=== PATIENT | male | born 1945 | race Caucasian/White ===

== ENCOUNTER 2016-08-23 14:18 | Inpatient (IN) | payer OTHER ==
--- NOTE | ~2016-08-23 | CN ---
Consultation Report [facility] [address] [place]. [address] NAME: GURDEEP LOWRY : 45 STATUS : ADM IN PAT#: [id number] AGE: 71 ADM/REG DATE : 08/23/16 MR#: [id number] REPORT SERV DATE: 09/01/16 DICTATED BY: ADELAIDE MAX DATE: 09/01/16 REPORT STATUS : Draft TRANSCRIBED BY: MODL DATE: 09/01/16 PULMONARY CRITICAL CARE MEDICINE, FAMILY CONFERENCE DOCUMENTATION DATE OF CONSULTATION: A family meeting was conducted with Mrs. Lowry on 08/31/2016. Participants included myself representing the Pulmonary Critical Care Medicine Service, Dr. Aiden Calabrese representing Oncology, and Delfina, nurse practitioner, from Palliative Care Service as well as the patient's bedside nurse, Ramón. Family representatives included patient's Mrs. Lowry as well as another lady who Mrs. Lowry requested to be present for emotional support. After introducing all members of the care team, we reviewed Mr. Lowry's continued dyspnea which had been persistent and worsening since he was extubated the previous day. Of note, nursing staff overnight did report that he had what they felt might have been an aspiration event while using the BiPAP, and he was transitioned to Vapotherm. He began progressively tachypneic and this was relayed to his family. We moved towards the concept of reintubation and Dr. 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 This information was relayed to Mrs. Lowry who was tearful, but did verbalize her understanding that Mr. Lowry is approaching the end of his life. She verbalized that after he was extubated last night and was wearing the Vapotherm, he was actually able to have a conversation with her, in which he told her that he was at peace with the situation and was ready to meet god. She verbalized that this had given her reassurance that he was ready to and although it was hard to let him go that she was also making peace with his continued decline, and was preparing to say goodbye. We did specifically addressed the fact that Dr. Calabrese and I were in agreement that ACLS would be inappropriate in the setting of advanced stage incurable malignancy with poor quality of life and this debilitated gentleman and Mrs. Lowry was in agreement with DNR. After all questions were answered, meeting was concluded. Mrs. Lowry proceeded to spend time with her , the transportation technician visit him later that day, and reported that she was more accepting than she had been previously been with regard to Mr. Lowry's continued decline. He was transitioned to comfort focus care to a monitored bed under Dr. Calabrese's service with a referral to hospice to assist with care as he approached the end of his life. He was moved to [facility] on the morning of 09/01/2016 on palliative Vapotherm, Dilaudid, Ativan with p.r.n. albuterol, and Zofran as well as scopolamine patch for control of secretions. Pulmonary critical care team is available on as needed basis. ZBIGNIEW/BRAIN Adelaide Max MD / [id number] CC: Consultation Report [address] [address] NAME: GURDEEP LOWRY : 45 STATUS : ADM IN [facility]#: [id number] AGE: 71 ADM/REG DATE : 08/23/16 MR#: [id number] REPORT SERV DATE: 09/01/16 DICTATED BY: ADELAIDE MAX DATE: 09/01/16 REPORT STATUS : Draft TRANSCRIBED BY: BRAIN DATE: 09/01/16 Nick Spring M.D.
--- NOTE | ~2016-08-23 | CN ---
Consultation Report [facility] [address] [place]. [address] NAME: GURDEEP LOWRY : 45 STATUS : ADM IN PAT#: [id number] AGE: 71 ADM/REG DATE : 08/23/16 MR#: [id number] REPORT SERV DATE: 08/28/16 DICTATED BY: IRENA WHALEN DATE: 08/28/16 REPORT STATUS : Draft TRANSCRIBED BY: MODL DATE: 08/28/16 DATE OF CONSULTATION: Consultation and Procedural Report This is a palliative care team meeting with the patient's and sister. Palliative Care team, including the MD, RN, GRIPPER ATTACHER, and inside sales person had an opportunity to meet with both the sister of the patient and his . A number of issues of concern had been raised regarding the patient's 's ability to understand, articulate, and describe the patient's medical condition. He is status post cardiac arrest from his oncologist's office, and yet there had been second and splitter hand reports that the family is denying the cancer is a problem. 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 The team was introduced and discussion ensued. We touched on the patient's very strong will to live. The fact that he was initially diagnosed some time ago as having a stroke, but in fact he had nerve injuries in his neck. He then recovered from all of that. His health is described by the as excellent, although he does wear oxygen and CPAP at night for obstructive sleep apnea. He also has a long history of smoking which he stopped five years ago. He has had lung surgery in the past as described in the H and P, which she also described. Unfortunately, what pervades the entire discussion is an incredible level of distrust and misinterpretation regarding healthcare interactions with both her, the patient, and her family members. She described in length and with great detail including dates the demise of her 32-year-old son in approximately 2002 at [place] from "unknown causes." She has tremendous amounts of doubt, she reads aggressively whatever and tries to seek understanding of medical information with less than a complete picture of the overall situation. Several attempts to redirect her back to her 's condition were complicated by descriptions of sister and other family members who have been either mistreated, mislead, or inappropriately managed by the health care field. I also received a detailed description of how pathology slides may not be necessarily accurately reviewed. The team members each contributed to her perspective on the patient's care and tried to get her back on focus. We agreed that while he does have an oncological problem that we are not going to let that be the priority issue. Our major problem now is the fact that he is on the ventilator, he also has an MRI scan which is somewhat suspicious of either an ischemic or an oncologic problem, and he is currently on the ventilator and he has not been weaning Consultation Report [facility] [address] [place]. [address] NAME: GURDEEP LOWRY : 45 STATUS : ADM IN [facility]#: [id number] AGE: 71 ADM/REG DATE : 08/23/16 MR#: [id number] REPORT SERV DATE: 08/28/16 DICTATED BY: IRENA WHALEN DATE: 08/28/16 REPORT STATUS : Draft TRANSCRIBED BY: BRAIN DATE: 08/28/16 entirely well. The 's perspective is that he has been getting better every day that he recognizes her, follows commands, and it is her expectation and hope that she will be able to take him home. We explained that in fact, given his underlying lung issues, his cancer stress, the use of chemotherapy in the recent past, etc., that the trauma of resuscitation, etc., may take a toll on him which will make it very hard for him to assume his previous life functional level and that we were going to have to definitely have a very detailed discussion going forward about how to handle the situation should he not be able to come off the respirator. Mrs. Lowry continues to take individual and tries to make conclusions from them which may or may not be accurate, and I have elected to only selectively engage her on this level, instead try and build a working relationship where we can actually meaningful changes going down the road. We did not at this time seek to clarify or discuss her understanding of a do not resuscitate order as it is both clinically and medically relevant to his current condition, and I did not wish to complicate the situation today. We have agreed to meet on a regular basis, our GRIPPER ATTACHER will be also providing support. We were going to basically stay involved with the corporate driver and sometime early next week if he is not actively weaning off the ventilator, a discussion about possibly weaning to either BiPAP or simply this oxygen depending upon his obstructive apnea questions may be an option, but I would certainly not support a tracheostomy in this gentleman. His current oncological situation and the morphology of his cancer certainly would not make this a reasonable choice. Today's discussion was approximately 95 minutes in duration. Questions were answered to the best of our ability. A care plan has been laid out. JULIO/BRAIN Irena Whlaen M.D. / [id number] CC: Nick Spring M.D. UNKNOWN
--- NOTE | ~2016-08-23 | CN ---
Consultation Report [facility] [address] [place]. [address] NAME: GURDEEP MARAVILLA : 45 STATUS : ADM IN [facility]#: [id number] AGE: 71 ADM/REG DATE : 08/23/16 MR#: [id number] REPORT SERV DATE: 08/25/16 DICTATED BY: OSCAR GARCIA DATE: 08/25/16 REPORT STATUS : Draft TRANSCRIBED BY: MODL DATE: 08/25/16 NEUROLOGICAL CONSULTATION DATE OF CONSULTATION: 08/25/2016 REASON FOR CONSULTATION: Encephalopathy, status post cardiopulmonary arrest, status post hypothermia protocol. HISTORY OF PRESENT ILLNESS: This is a 71-year-old male with known recently diagnosed history of metastatic lung CA, small cell, who suffered a cardiac arrest at his oncologist's office yesterday, and the patient was found to be in ventricular fibrillation and CPR was started while the patient was in the physician's office. On admission to the emergency room, the patient was found to be in ventricular fibrillation. The ACLS protocol was followed. The patient required six to seven shocks along with the CPR and eventually had return of spontaneous circulation. Hypothermia protocol was initiated, and the patient currently is after the rewarming stage. PAST MEDICAL HISTORY: Significant for history of COPD; emphysema; history of sleep apnea; coronary artery disease; hypertension; atrial fibrillation; hyperlipidemia; history of renal disease; history of aortic aneurysm, which has been followed by his vascular surgeon, Dr. Landeros, the patient is status post aortic aneurysm repair. The patient's lung cancer with metastasis to the liver was diagnosed in June of this year, the findings were noted on the emergency room CT scan, which was obtained with the patient presenting with shortness of breath. The patient has history of chronic kidney disease, history of hyperlipidemia, hypertension, and a questionable diabetes. ALLERGIES: TO MORPHINE. HOME MEDICATIONS: Included Coreg 3.125 mg p.o. b.i.d., Hytrin 4 mg b.i.d., Klonopin 1 mg once a day, hydralazine 100 mg three times a day, Norvasc 5 mg p.o. daily, albuterol p.r.n., oxygen, Demadex 10 mg p.o. daily, Dilaudid 2 mg as needed, and Robaxin. FAMILY HISTORY: Significant for history of polycystic kidney disease, of which the patient's son and brother . The patient does not have any history of polycystic kidney disease. SOCIAL HISTORY: The patient stopped smoking in 2010. When the patient's was asked whether she was exposed to secondhand smoke, she stated that she smokes "outside." The patient is retired. PHYSICAL EXAMINATION: VITAL SIGNS: Blood pressure 106/60, pulse was 63, respirations 14. GENERAL: The patient is orally intubated, currently on Precedex for restlessness. HEAD AND NECK: Showed him to be normocephalic. There was no evidence of trauma. The patient is orally intubated. Eye exam, sclerae were not icteric. Conjunctivae were pink. Consultation Report [address] [place]. [address] NAME: GURDEEP MARAVILLA : 45 STATUS : ADM IN [facility]#: [id number] AGE: 71 ADM/REG DATE : 08/23/16 MR#: [id number] REPORT SERV DATE: 08/25/16 DICTATED BY: OSCAR GARCIA DATE: 08/25/16 REPORT STATUS : Draft TRANSCRIBED BY: BRAIN DATE: 08/25/16 ENT exam, the patient appears to have some missing teeth from the frontal region. Neck was supple. There was no Kernig or Brudzinski. The patient was off sedation and moved all four extremities. Off sedation, the patient was breathing over the ventilator at 25 or 30 respirations a minute. ABDOMEN: Slightly obese. The patient is in a Carlos Hugger. EXTREMITIES: Showed red discoloration of distal leg and swelling up to the knees, which was 2 to 3+ pitting. No ecchymosis noted. NEUROLOGICAL: The patient was restless, appeared to open his eyes to command, however, did not follow commands to move his arms or legs. The patient had to be restrained with mittens over his hands. No cyanosis noted. Neurological examination otherwise showed the patient to be obtunded, but responding to voice to open his eyes. The patient did not follow commands. He is orally intubated. Speech could not be tested. Cranial nerve examination 2 through 12, visual menon were difficult to test since the patient was not following commands. Pupils were 3 mm and responded to light. The gaze was midline. No dysconjugate gaze was noted. The patient's gaze appeared to cross midline. Corneal reflexes were present, and the patient has gag reflex also. No facial asymmetry was detected. Motor exam, the patient moved all four extremities, but not to command. His leg movements were, however, not as robust as arm movements. Deep tendon reflexes were difficult to test, appeared to be symmetrical. Babinski signs were not elicitable, and cerebellar exam could not be tested. Gait obviously could not be tested. LABORATORY STUDIES: Show WBC count of 21,800; hemoglobin 8.9; hematocrit 26.5; MCV 91; platelet count 121,000; segs 84, bands 5, neutrophils 19.40. Comprehensive metabolic panel: Sodium 136, potassium 4.8, chloride 101, carbon dioxide 29, BUN 21, creatinine 1.36, GFR 52, glucose 131, calcium 8.3, magnesium 2.6, phosphorus 5.1, total protein 5.6, albumin 2.5, alkaline phosphatase 195, AST 75, ALT 39. CT scan of the head reviewed by me showed evidence of small areas of ischemic changes, which appear to be old periventricular; no acute hemorrhagic changes or midline shift noted; slight effacement of the ojeda and white matter junction noted, however, no true cerebral edema present. The patient's EEG was reviewed while was being run at the patient's bedside and showed continuous slowing of cerebral activity with moderate to high voltage theta range activity. No paroxysmal or epileptiform activity was seen. No significant asymmetry of cerebral activity was present. The patient's EEG does not show signs of cerebral ; however, diffuse slowing is suggestive of possible encephalopathic process and could not rule out some cerebral anoxia. The patient is status post hypothermia protocol recently, rewarmed body temperature today was back to normal. IMPRESSION: Status post cardiac arrest, witnessed. The patient had prolonged ACLS protocol and required seven to eight shocks to return to spontaneous circulation. The patient's EEG is compatible with encephalopathy, however, shows moderate amount of cerebral activity present. History of metastatic lung cancer with metastasis to the liver, diagnosed in June of this year. History of renal insufficiency, hypertension, history of atrial fibrillation, coronary artery disease, remote history of CVA in 2010. The patient has an increased risk of CVA. Would recommend to maintain the patient's blood pressure above 130-140 systolic range to maintain cerebral perfusion. Avoid precipitous drops of blood pressure if Consultation Report [facility] [address] [place]. [address] NAME: GURDEEP MARAVILLA : 45 STATUS : ADM IN PAT#: [id number] AGE: 71 ADM/REG DATE : 08/23/16 MR#: [id number] REPORT SERV DATE: 08/25/16 DICTATED BY: OSCAR GARCIA DATE: 08/25/16 REPORT STATUS : Draft TRANSCRIBED BY: BRAIN DATE: 08/25/16 possible. Do not treat hypotension unless the blood pressure reaches above 180 systolic if okay with Cardiology. Repeat EEG in 24 hours. If needed, the patient will be re-evaluated by me. Prognosis is guarded. Thank you for allowing us to participate in this patient's care. This was a critical care visit, total time 50 minutes. The patient has increased risk of mortality, increased risk of neurological deterioration, multiple comorbidities. AGUSTIN/BRAIN Oscar Garcia MD / [id number] CC: Nick Spring M.D.
--- NOTE | ~2016-08-23 | DS ---
Discharge Summary [facility] [address] [place]. [address] NAME: GURDEEP LOWRY : 45 STATUS : DIS IN PAT#: [id number] AGE: 71 ADM/REG DATE : 08/23/16 MR#: [id number] REPORT SERV DATE: 09/22/16 DICTATED BY: GUANAKITO TRIVEDI DATE: 09/21/16 REPORT STATUS : Draft TRANSCRIBED BY: MODL DATE: 09/21/16 ADMISSION DATE: 08/23/2016 DISCHARGE DATE: 09/01/2016 SUMMARY DATE OF : 09/01/2016 DISCHARGE DIAGNOSES: 1. Acute cardiopulmonary arrest, for admission. 2. Metastatic small cell lung cancer. 3. Anoxic encephalopathy. HOSPITAL COURSE: Mr. Lowry is a gentleman who had a witnessed [id number] arrest. He was defibrillated multiple times and had CPR performed. He was transferred to the emergency department. He was admitted to the hospital and had hypothermia protocol. He was able to be extubated, but then had worsening dyspnea. Decision was made for comfort care alone after discussion with the adobe developer and oncologist, Dr. Trivedi, covering for Dr. Robles. He was transferred from the ICU to the floor for comfort care, and on 09/01/2016, with family at bedside . DICTATED BY: Guanakito Trivedi M.D. EA/BRAIN Guanakito Trivedi M.D. / [id number] CC: Guanakito Trivedi M.D.
--- NOTE | ~2016-08-23 | CN ---
Consultation Report [facility] [address] [facility] [address] [place]. [address] NAME: GURDEEP MARAVILLA : 45 STATUS : ADM IN [facility]#: [id number] AGE: 71 ADM/REG DATE : 08/23/16 MR#: [id number] REPORT SERV DATE: 08/23/16 DICTATED BY: JOE SPRING DATE: 08/23/16 REPORT STATUS : Draft TRANSCRIBED BY: MODL DATE: 08/23/16 CONSULTATION DATE OF CONSULTATION: 08/23/2016 TIME: 1530 hours. LOCATION: Seen in room 2 in the ER. HISTORY OF PRESENT ILLNESS: He is a 71-year-old white male undergoing treatment for the metastatic small-cell lung cancer. He was seen in his oncologist office today and had a ventricular fibrillation and witnessed cardiac arrest. Had six to seven shocks along with CPR, had return of spontaneous circulation, brought to the ER here, and hypothermia protocol was begun as the patient was not deemed to be waking up. PAST MEDICAL HISTORY: Quite significant for COPD and emphysema; he had obstructive sleep apnea, he is on home CPAP; history of chronic hypoxemic respiratory failure; history of coronary artery disease, status post cardiac [place] in the past and stents; has peripheral vascular disease; endovascular repair of abdominal aortic aneurysm by Dr. Landeros; chronic kidney disease; history of osteoarthritis; degenerative disk disease; back pain; and history of prior CVA in 2010 with no significant residual. PAST SURGICAL HISTORY: Significant for cardiac catheterization, cardiac stents, history of abdominal aortic aneurysm repair on 01/25/2012, and melanoma removal. ALLERGIES: NO KNOWN ALLERGIES. MEDICATION LIST: Please see. SOCIAL HISTORY: The patient is , lives with his family. He used to smoke, quit in 2010, had 6-pack-year smoking history. PHYSICAL EXAMINATION: VITAL SIGNS: Blood pressure 144/40, temperature 99.4, pulse 122, respirations 14. GENERAL: The patient is orally intubated. HEENT: Head is normocephalic. Sclerae and conjunctivae are clear. Roving eye movements. NECK: Supple. Good upstroke. No bruits. CHEST: Decreased breath sounds. No wheezing, no rhonchi. CARDIAC: S1 and S2, irregular. ABDOMEN: Obese, nontender. No masses or organomegaly. EXTREMITIES: Marked edema with bilateral cellulitis of lower extremities. NEUROLOGIC: The patient does respond to some painful stimuli, has nonpurposeful movements, does not respond to command. Consultation Report [facility] [id number] [facility] [place]. [address] NAME: GURDEEP MARAVILLA : 45 STATUS : ADM IN PAT#: [id number] AGE: 71 ADM/REG DATE : 08/23/16 MR#: [id number] REPORT SERV DATE: 08/23/16 DICTATED BY: JOE SPRING DATE: 08/23/16 REPORT STATUS : Draft TRANSCRIBED BY: BRAIN DATE: 08/23/16 LABORATORY DATA: Shows the following: A biopsy that showed small cell cancer. Now atrial fibrillation with rapid ventricular response. His BNP was 178. His sodium was 134, potassium 4.1, chloride 96, CO2 of 29, BUN 24, creatinine 2.01, glucose 215, calcium 8.4, total protein 5.9, albumin 2.8, alkaline phosphatase 242, ALT 33, AST 50. Troponin 0.04. CBC shows H and H of 9.3 and 28.1, white count 35,900, platelet count 112,000. 70 polys, 9 bands, 2 metamyelocytes. INR 1.2. Lactate 3.6. Arterial blood gas shows a pH of 7.32, pCO2 of 40, PO2 of 340 on CMV. Gram stain shows occasional wbc's, gram-positive cocci. KUB shows NG tube in the stomach. Chest x-ray shows endotracheal tube in place, chronic interstitial fibrosis, minimal scarring atelectasis at the lung bases. No significant trace. No pneumothorax or pleural effusion. IMPRESSION: 1. Status post cardiac arrest with atrial fibrillation. He did receive epinephrine during the arrest, which can account for his elevated white count. 2. Metastatic small-cell cancer. 3. Probable anoxic encephalopathy. 4. Cellulitis in lower extremities. 5. Chronic kidney disease. 6. Probable diabetes. PLAN: We will continue with hypothermia protocol. I have discussed this with his , and she has agreed to make him a do not resuscitate, but we will continue treatment for now. There will be a PICC line placed. ROBERTO/BRAIN Joe Spring M.D. / [id number] CC: Joe Spring M.D.
--- NOTE | ~2016-08-23 | EEG ---
Electroencephalogram [facility] [address] [place]. [address] NAME: GURDEEP MARAVILLA : 45 STATUS : ADM IN PAT#: [id number] AGE: 71 ADM/REG DATE : 08/23/16 MR#: [id number] REPORT SERV DATE: 08/25/16 DICTATED BY: OSCAR GARCIA DATE: 08/25/16 REPORT STATUS : Draft TRANSCRIBED BY: MODL DATE: 08/25/16 ELECTROENCEPHALOGRAPHY REPORT. REQUESTING PHYSICIAN: Dr. Nick Spring. INTERPRETING PHYSICIAN: Oscar Garcia M.D., Neurology. Location of the patient's CCU bed 8. AGE: 71. REASON FOR EEG: Status post cardiac arrest. The patient completed hypothermia protocol including rewarming stages. Sedation-Diprivan was discontinued prior to the EEG. 23 surface electrodes, 10-20 international placement was used. The patient was noted to be restless, not following commands. The patient opened his eyes to voice. Did not fixate his gaze on examination. The background activity consisted of dappomow-ce-qsir voltage, very poorly organized delta and theta range activity ranging between 3 to 6 cycles per second scattered throughout, increase of biphasic and triphasic waveforms was seen, most prominently seen in the anterior and central head regions. Photic stimulation was performed. Slight increase of frequency of the background activity was observed during the time of the photic stimulation. No paroxysmal or epileptiform activity was seen during this study. The EEG remained severely abnormal. The patient's health science writer showed sinus rhythm, rate of approximately 78 beats per minute. The patient did not follow commands. IMPRESSION: ABNORMAL EEG CHARACTERIZED BY PRESENCE OF SLOWING AND DISORGANIZATION OF CEREBRAL ACTIVITY. THE CHANGES APPEAR TO BE BILATERALLY SYNCHRONOUS AND DIFFUSE. THE ABOVE DESCRIBED PATTERN IS COMPATIBLE WITH ENCEPHALOPATHY. SUPERIMPOSED HYPOXIC ENCEPHALOPATHY COULD NOT BE RULED OUT. REPEAT EEG IS RECOMMENDED WHEN CLINICALLY INDICATED. TOXIC METABOLIC CAUSES AND HYPOXIA CAN PRODUCE SIMILARLY DESCRIBED PATTERN. CLINICAL CORRELATION IS RECOMMENDED. AGUSTIN/BRAIN Oscar Garcia MD / [id number] CC: Nick Spring M.D.
--- NOTE | ~2016-08-23 | CN ---
Consultation Report [facility] [address] [place]. [address] NAME: GURDEEP MARAVILLA : 45 STATUS : ADM IN PAT#: [id number] AGE: 71 ADM/REG DATE : 08/23/16 MR#: [id number] REPORT SERV DATE: 08/23/16 DICTATED BY: MARQUISE MURO DATE: 08/23/16 REPORT STATUS : Draft TRANSCRIBED BY: MODL DATE: 08/23/16 CARDIOLOGY CONSULT DATE OF CONSULTATION: HISTORY OF PRESENT ILLNESS: This is a 71-year-old white obese gentleman with what looks like advanced metastatic cancer from lungs to the liver who was earlier today resuscitated while at Outpatient Oncology Department at [facility]. He was feeling dizzy and nauseated according his earlier today, got weak, and while sitting, he passed out. He was found to have VFib arrest, and subsequently, he was pulseless. He required according to nurse several shocks and epinephrine. He was intubated on the scene and he is now in the emergency room. He was in the process to be cool down per cooling protocol. I had the opportunity to talk to Dr. Mendes. There is some confusion among the family members about the current situation. I was able to briefly review the discharge summary from [facility] dated 06/22/2016 to 06/26/2016. 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 He reportedly had two cycles of chemotherapy. He is on chronic oxygen at home in the setting of his underlying COPD. He also has some severe peripheral artery disease. He had AAA repair with remote history of coronary arteriogram in 2011 at the [facility] with chronically occluded left circumflex with some collateralization. He also has underlying kidney disease, but preserved systolic function. He has been stable from cardiac standpoint. His main problem recently has been cellulitis on both lower extremities, low-grade fever, and general weakness. This is according to his . The patient is now currently intubated. He has been reportedly full code. Further history unobtainable. PAST MEDICAL HISTORY: 1. Left lung mass with likely lung cancer with metastases to the liver. 2. Severe COPD with emphysema, on chronic oxygen at home. 3. Obstructive sleep apnea. 4. Mediastinal mass, apparently not accessible for biopsy or flexible bronchoscopy. 5. Coronary artery disease with remote history of SC and cardiac stents, currently stable. 6. Now status post VFib and V tach arrest. 7. Hypertension. 8. Peripheral artery disease and remote history of AAA repair by Dr. Landeros. 9. Chronic atrial fibrillation with history of cardioversion in 2013. 10.Chronic kidney disease and hyperlipidemia. 11.Psoriasis. 12.Now bilateral lower extremity cellulitis. 13.Remote history of CVA in 2010. 14.Anxiety disorder. HOME MEDICATIONS: Coreg 3.125 mg twice a day, Hytrin 4 mg twice a day, Klonopin 1 mg once a day, hydralazine 100 mg three times a day, albuterol, Norvasc 5 mg once a day, albuterol Consultation Report [address] [place]. [address] NAME: GURDEEP MARAVILLA : 45 STATUS : ADM IN [facility]#: [id number] AGE: 71 ADM/REG DATE : 08/23/16 MR#: [id number] REPORT SERV DATE: 08/23/16 DICTATED BY: MARQUISE MURO DATE: 08/23/16 REPORT STATUS : Draft TRANSCRIBED BY: BRAIN DATE: 08/23/16 p.r.n., oxygen, Demadex 10 mg once a day, Dilaudid 2 mg as needed, and Robaxin. SOCIAL HISTORY: The patient is . He quit smoking in 2010, smoked multiple years. He is retired. FAMILY HISTORY: Negative for sudden cardiac deaths or premature coronary artery in the family. PHYSICAL EXAMINATION: GENERAL: Elderly, obese, sedated, intubated gentleman. VITAL SIGNS: Blood pressure 173/62, on monitor, he is in atrial fibrillation. HEENT: Pupils reactive to light and accommodation. Moist mucosa membrane. NECK: No JVD. Normal carotid upstroke. No carotid bruits. LUNGS: Decreased breath sounds, but no crackles. . COR: Normal S1, S2. No S3 or S4. No significant rub or murmurs. ABD: Morbidly obese, distended, and nontender. EXT: Lower extremity, 1+ edema up to the knee bilaterally with severe cellulitis up to the knee with decreased pedal pulses bilaterally. SKIN: Warm with normal turgor. MS - No kyphosis. NEURO/PSY - Alert and oriented. Nonfocal. DATA: Creatinine 2.0 with BUN 24. Troponin 0.01. CBC remarkable for hemoglobin 9.3, leukocytosis 35,000, and 120,000 is platelet count. Electrocardiogram revealed atrial fibrillation after he has been resuscitated with heart rate 115. PH is 7.32 on ABG. Chest x-ray shows some chronic interstitial disease and endotracheal tube. ASSESSMENT AND PLAN: 1. Status post cardiac arrest, ventricular fibrillation, ventricular tachycardia. 2. 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 3. Leukocytosis with recent cellulitis. 4. Acute on chronic respiratory failure. I attempted to review situation with of the patient, but she has been convinced that despite all of that he does not have cancer. She admitted that the patient was receiving chemotherapy by Dr. Robles, but wanted him to have everything done including full resuscitation. Dr. Spring, surveyor rod helper, who is going to admit him is discussing situation with Dr. Robles, if there would be any. Of note, he has chronic atrial fibrillation and we will continue intravenous amiodarone for now until the situation will be clear. He was not on chronic anticoagulation as best of my knowledge, but the patient does not remember the medication list. The situation about the status of his cancer will definitely need to be clarified with his primary oncologist. I am concerned that the prognosis is poor based on the above. We will continue supportive measures from the cardiac standpoint. TOTAL TIME: Twenty minute spent reviewing situation and discussing situation with the family members. Consultation Report [address] [address] NAME: GURDEEP MARAVILLA : 45 STATUS : ADM IN [facility]#: [id number] AGE: 71 ADM/REG DATE : 08/23/16 MR#: [id number] REPORT SERV DATE: 08/23/16 DICTATED BY: MARQUISE MURO DATE: 08/23/16 REPORT STATUS : Draft TRANSCRIBED BY: BRAIN DATE: 08/23/16 LENIN/BRAIN Marquise Muro M.D. / [id number] CC: Nick Spring M.D.
[2016-08-23 13:59] LABS: ALLENS TEST Pos; BE (BASE EXCESS) -4.5 MEQ/L (0 +/- 2.5); CARBOXYHEMOGLOBIN 0.9 % (0-3); HCO3 (ACTUAL BICARBONATE) 21.2 MEQ/L (23-27); HEMOBLOGIN CONTENT 9.6 G/DL (14-18); INSTRUMENT SERIAL # 8087; METHEMOGLOBIN 0.3 % (0-3); MODE CMV; O2 CONTENT 14.1 VOL% (18-24); PCO2 (CO2 TENSION) 42 MMHG (35-45); PO2 (O2 TENSION) 340 MMHG (79-93); SAMPLE Arterial; TIDAL VOLUME 800 ML; pH 7.32 (7.37-7.43)
[~2016-08-23 14:18] MED LIST: ACCUNEB INH; ALBUTEROL INHALER; ALBUTEROL0.083 % INH; APPLE CIDER VINEGAR PO; APRES25 PO; ASA5GR PO; ASAB PO; ATROVENT HFA17 MCG INH; ATROVENTUD INH; B COMPLETE PO; BREO ELLIPTA INH; BYSTOLIC5 MG PO; CARDCD240 PO; CAT1 PO; CATPATCH1 TOP; CAYENNE PEPPER PO; CO Q-10 OTC PO; CO Q-10200 MG PO; COMBIVENT INH; COREG25 PO; COREG3 PO; COREG6 PO; COUMADIN; COZ25 PO; DEMA10T PO; DEMA20 PO; DIL2TAB; DUONEB INH; GINKGO BILO1 PO; HALF81 PO; HAWTHORN BER500 MG OR; HYDRALAZINE100 MG PO; HYT1 PO; HYT2 PO; JANTOVEN4 MG PO; JANTOVEN5 MG PO; KLONO1 PO; KLONO5 PO; KLOR-CON M2020 MEQ PO; L-ARGININE PO; LIPITOR20 PO; MAG6464 MG PO; MAGNESIUM OTC PO; METHOC750B PO; MULTIPLE VIT PO; NORV10 PO; NORV5 PO; ORAZINC110 MG PO; OS500+D PO; PLAVIX PO; POTASSIUM GLUCO99 MG; POTASSIUM OTC PO; PROAIR HFA INH; PROTONIX PO; T PO; TERAZOSIN PO; TRIAMCINOLONE C80 GM TOP; VENTOLIN HFA INH; VITAMIN B-121000 MC1 SL; VITC500 PO; ZESTRIL20 MG PO
[2016-08-23 14:38] LABS: BASOPHILS 0.8 %; EOSINOPHILS 0.1 %; EOSINOPHILS ABSOLUTE 0.05 10/3/uL (0.0-0.53); IMMATURE GRANULOCYTES 14.9 %; LYMPHOCYTES 11.4 %; MEAN CORPUS HGB CONC 33.1 g/dL (32.0-36.0); MEAN CORPUSCULAR HEMOGLOB 30.6 pg (26.0-34.0); MEAN CORPUSCULAR VOLUME 92.4 fL (80-100); MEAN PLATELET VOLUME 10.8 fL (9.2-13.0); MONOCYTES 5.7 %; MONOCYTES ABSOLUTE 2.03 10/3/uL (0.21-1.20); NEUTROPHILS 67.1 %; NEUTROPHILS ABSOLUTE 24.09 10/3/uL (2.02-8.40); RBC DISTRIBUTION WIDTH 16.6 % (12.0-16.0)
[2016-08-23 14:39] LABS: ER CBC TAT 0 Hrs 13 Mins; HEMATOCRIT 28.1 % (40.0-51.0); HEMOGLOBIN 9.3 g/dL (13.6-17.8); PLATELET COUNT 112 10/3/uL (150-400); RED CELL COUNT 3.04 10/6/uL (4.7-6.1); WHITE BLOOD CELLS 35.9 10/3/uL (4.5-10.5)
[2016-08-23 14:40] LABS: IMMATURE GRANULOCYTES ABSOLUTE 5.34 10/3/uL (0.0-0.11); MANUAL DIFF NO %
[2016-08-23 14:45] LABS: INTERNATIONAL NORMAL RATI 1.2 UNITS (-); PROTIME (NOT ORD) 15.4 SEC (12.0-14.5)
[2016-08-23 14:47] LABS: NUCLEATED RED BLOOD CELLS 0.6 /100WBC (0-0)
[2016-08-23] MEDS ORDERED: L40 PO (14:54)
[2016-08-23] MEDS ORDERED: AMITIZA24 PO (14:55)
[2016-08-23] MEDS ORDERED: OMNICEF300 PO (14:56)
[2016-08-23 14:57] LABS: A/G RATIO 0.9 (0.7-1.9); ALBUMIN 2.8 G/DL (3.5-5.0); ALKALINE PHOSPHATASE 242 U/L (45-117); BUN (BLOOD UREA NITROGEN) 24 MG/DL (6-23); CALCIUM, SERUM 8.4 MG/DL (8.5-10.4); CHLORIDE, SERUM 96 MMOL/L (96-112); CO2 (CARBON DIOXIDE) 29 MMOL/L (24-34); CREATININE 2.01 MG/DL (0.70-1.30); GFR AFRICAN AMERICAN 38 ML/MIN (>=60); GFR NON AFRICAN AMERICAN 32 ML/MIN (>=60); GLOBULIN 3.1 G/DL (2.5-4.1); GLUCOSE, SERUM 215 MG/DL (60-99); POTASSIUM, SERUM 4.1 MMOL/L (3.5-5.3); SGOT(AST) 50 U/L (5-40); SGPT(ALT) 33 U/L (5-65); SODIUM, SERUM 134 MMOL/L (135-148); TOTAL BILIRUBIN 0.4 MG/DL (0-1.2); TOTAL PROTEIN 5.9 G/DL (6.0-8.5); TROPONIN I 0.04 NG/ML (<0.05)
[2016-08-23] MEDS ORDERED: DURA50 TOP (14:58)
[2016-08-23] MEDS ORDERED: ATROVENTUD INH (14:59)
[2016-08-23] MEDS ORDERED: NEUR300 PO (15:00)
[2016-08-23] MEDS ORDERED: COMBIVENT RESPIM4 GM INH (15:00)
[2016-08-23] MEDS ORDERED: OXYCOD PO (15:01)
[2016-08-23] MEDS ORDERED: SPIRO50 PO (15:01)
[2016-08-23] MEDS ORDERED: MONODOX100 MG PO (15:02)
[2016-08-23] MEDS ORDERED: KLONO1 PO (15:02)
[2016-08-23 15:03] LABS: BAND NEUTROPHILS 9 %; BASOPHILS 1 %; BASOPHILS ABSOLUTE (CALC) 0.36 10/3/uL (0.0-0.16); ER DIFF TAT 0 Hrs 37 Mins; IMMATURE GRANS ABSOLUTE (CALC) 0.72 10/3/uL (0.0-0.11); LYMPHOCYTES 13 %; LYMPHOCYTES ABSOLUTE (CALC) 4.67 10/3/uL (0.67-4.30); METAMYELOCYTES 2 %; MONOCYTES 5 %; NEUTROPHILS ABSOLUTE (CALC) 28.36 10/3/uL (2.02-8.40); PLATELET ESTIMATE SLT DEC (ADEQUATE); SEGMENTED NEUTROPHIL (0) 70 %; TOTAL NUCLEATED CELLS 100
[2016-08-23 15:04] LABS: ANISOCYTOSIS 1+ (5-10/OIF) (0-5/OIF); MACROCYTES 1+ (5-10/OIF) (0-5/OIF); MICROCYTES 1+ (5-10/OIF) (0-5/OIF)
[2016-08-23 21:27] LABS: PROCALCITONIN 1.01 ng/mL (<0.5)
[2016-08-23 21:59] LABS: BUN (BLOOD UREA NITROGEN) 26 MG/DL (6-23); CALCIUM, SERUM 8.3 MG/DL (8.5-10.4); CHLORIDE, SERUM 98 MMOL/L (96-112); CO2 (CARBON DIOXIDE) 28 MMOL/L (24-34); CREATININE 1.66 MG/DL (0.70-1.30); FREE T4 1.42 NG/DL (0.76-1.46); GFR AFRICAN AMERICAN 47 ML/MIN (>=60); GFR NON AFRICAN AMERICAN 41 ML/MIN (>=60); GLUCOSE, SERUM 223 MG/DL (60-99); PHOSPHORUS, SERUM 3.8 MG/DL (2.5-4.5); POTASSIUM, SERUM 4.3 MMOL/L (3.5-5.3); SODIUM, SERUM 135 MMOL/L (135-148)
[2016-08-23 22:09] LABS: FOLATE 35.6 NG/ML (>5.2); ULTRASENSITIVE TSH 0.978 MCIU/ML (0.358-3.740)
[2016-08-24 03:54] LABS: ALLENS TEST Pos; CARBOXYHEMOGLOBIN 0.8 % (0-3); HCO3 (ACTUAL BICARBONATE) 30.4 MEQ/L (23-27); HEMOBLOGIN CONTENT 8.8 G/DL (14-18); INSTRUMENT SERIAL # 35151; METHEMOGLOBIN 0.5 % (0-3); MODE CMV; O2 CONTENT 11.7 VOL% (18-24); OPERATOR ID 31061; PCO2 (CO2 TENSION) 49 MMHG (35-45); PO2 (O2 TENSION) 80 MMHG (79-93); SAMPLE Arterial; TIDAL VOLUME 500 ML; pH 7.41 (7.37-7.43)
[2016-08-24 04:09] LABS: HEMATOCRIT 26.6 % (40.0-51.0); HEMOGLOBIN 8.9 g/dL (13.6-17.8); MEAN CORPUS HGB CONC 33.5 g/dL (32.0-36.0); MEAN CORPUSCULAR HEMOGLOB 30.6 pg (26.0-34.0); MEAN CORPUSCULAR VOLUME 91.4 fL (80-100); MEAN PLATELET VOLUME 10.6 fL (9.2-13.0); NUCLEATED RED BLOOD CELLS 0.2 /100WBC (0-0); PLATELET COUNT 106 10/3/uL (150-400); RBC DISTRIBUTION WIDTH 16.5 % (12.0-16.0); RED CELL COUNT 2.91 10/6/uL (4.7-6.1)
[2016-08-24 04:11] LABS: A/G RATIO 0.9 (0.7-1.9); ALBUMIN 2.7 G/DL (3.5-5.0); BUN (BLOOD UREA NITROGEN) 24 MG/DL (6-23); CALCIUM, SERUM 8.4 MG/DL (8.5-10.4); CHLORIDE, SERUM 98 MMOL/L (96-112); CREATININE 1.51 MG/DL (0.70-1.30); GFR AFRICAN AMERICAN 53 ML/MIN (>=60); GFR NON AFRICAN AMERICAN 46 ML/MIN (>=60); GLOBULIN 3.1 G/DL (2.5-4.1); POTASSIUM, SERUM 3.8 MMOL/L (3.5-5.3); SGOT(AST) 63 U/L (5-40); SGPT(ALT) 37 U/L (5-65); SODIUM, SERUM 135 MMOL/L (135-148); TOTAL BILIRUBIN 0.4 MG/DL (0-1.2); TOTAL PROTEIN 5.8 G/DL (6.0-8.5)
[2016-08-24 04:12] LABS: ALKALINE PHOSPHATASE 222 U/L (45-117); CO2 (CARBON DIOXIDE) 34 MMOL/L (24-34); GLUCOSE, SERUM 133 MG/DL (60-99); MANUAL DIFF YES %; WHITE BLOOD CELLS 27.6 10/3/uL (4.5-10.5)
[2016-08-24 04:26] LABS: BAND NEUTROPHILS 14 %; IMMATURE GRANS ABSOLUTE (CALC) 0.55 10/3/uL (0.0-0.11); LYMPHOCYTES 1 %; LYMPHOCYTES ABSOLUTE (CALC) 0.28 10/3/uL (0.67-4.30); METAMYELOCYTES 1 %; MONOCYTES 5 %; MONOCYTES ABSOLUTE (CALC) 1.38 10/3/uL (0.21-1.20); MYELOCYTES 1 %; NEUTROPHILS ABSOLUTE (CALC) 25.39 10/3/uL (2.02-8.40); PLATELET ESTIMATE DEC (ADEQUATE); RBC MORPHOLOGY NORM (NORMAL); SEGMENTED NEUTROPHIL (0) 78 %; TOTAL NUCLEATED CELLS 100
[2016-08-24 09:03] LABS: HEMATOCRIT 27.4 % (40.0-51.0); HEMOGLOBIN 9.2 g/dL (13.6-17.8); MANUAL DIFF YES %; MEAN CORPUS HGB CONC 33.6 g/dL (32.0-36.0); MEAN CORPUSCULAR HEMOGLOB 30.6 pg (26.0-34.0); MEAN PLATELET VOLUME 10.6 fL (9.2-13.0); PLATELET COUNT 111 10/3/uL (150-400); RBC DISTRIBUTION WIDTH 16.7 % (12.0-16.0); RED CELL COUNT 3.01 10/6/uL (4.7-6.1); WHITE BLOOD CELLS 22.1 10/3/uL (4.5-10.5)
[2016-08-24 09:09] LABS: BUN (BLOOD UREA NITROGEN) 24 MG/DL (6-23); CALCIUM, SERUM 8.5 MG/DL (8.5-10.4); CHLORIDE, SERUM 99 MMOL/L (96-112); CO2 (CARBON DIOXIDE) 33 MMOL/L (24-34); CREATININE 1.44 MG/DL (0.70-1.30); GFR AFRICAN AMERICAN 56 ML/MIN (>=60); GFR NON AFRICAN AMERICAN 49 ML/MIN (>=60); GLUCOSE, SERUM 110 MG/DL (60-99); PHOSPHORUS, SERUM 4.5 MG/DL (2.5-4.5); POTASSIUM, SERUM 4.1 MMOL/L (3.5-5.3); SODIUM, SERUM 135 MMOL/L (135-148)
[2016-08-24 09:35] LABS: LYMPHOCYTES 2 %; LYMPHOCYTES ABSOLUTE (CALC) 0.44 10/3/uL (0.67-4.30); MONOCYTES 4 %; MONOCYTES ABSOLUTE (CALC) 0.88 10/3/uL (0.21-1.20); NEUTROPHILS ABSOLUTE (CALC) 20.77 10/3/uL (2.02-8.40); PLATELET ESTIMATE SLT DEC (ADEQUATE); RBC MORPHOLOGY NORM (NORMAL); SEGMENTED NEUTROPHIL (0) 94 %; TOTAL NUCLEATED CELLS 100
[2016-08-24 21:52] LABS: HEMATOCRIT 26.9 % (40.0-51.0); MEAN CORPUS HGB CONC 33.5 g/dL (32.0-36.0); MEAN CORPUSCULAR HEMOGLOB 30.7 pg (26.0-34.0); MEAN CORPUSCULAR VOLUME 91.8 fL (80-100); MEAN PLATELET VOLUME 10.7 fL (9.2-13.0); PLATELET COUNT 111 10/3/uL (150-400); RBC DISTRIBUTION WIDTH 16.8 % (12.0-16.0); RED CELL COUNT 2.93 10/6/uL (4.7-6.1); WHITE BLOOD CELLS 23.5 10/3/uL (4.5-10.5)
[2016-08-24 21:53] LABS: MANUAL DIFF YES %
[2016-08-24 22:37] LABS: LYMPHOCYTES 3 %; LYMPHOCYTES ABSOLUTE (CALC) 0.71 10/3/uL (0.67-4.30); MONOCYTES 7 %; MONOCYTES ABSOLUTE (CALC) 1.65 10/3/uL (0.21-1.20); NEUTROPHILS ABSOLUTE (CALC) 21.15 10/3/uL (2.02-8.40); SEGMENTED NEUTROPHIL (0) 90 %; TOTAL NUCLEATED CELLS 100
[2016-08-24 22:38] LABS: ANISOCYTOSIS 1+ (5-10/OIF) (0-5/OIF); PLATELET ESTIMATE SLT DEC (ADEQUATE); TEARDROP SHAPED RBCS FEW (3-10/OIF)
[2016-08-24 22:39] LABS: HELMET CELLS FEW (3-10/OIF); MACROCYTES 1+ (5-10/OIF) (0-5/OIF); MICROCYTES 1+ (5-10/OIF) (0-5/OIF)
[2016-08-24 22:52] LABS: ALBUMIN 2.6 G/DL (3.5-5.0); CALCIUM, SERUM 7.6 MG/DL (8.5-10.4); CHLORIDE, SERUM 115 MMOL/L (96-112); GLUCOSE, SERUM 107 MG/DL (60-99); SGPT(ALT) 14 U/L (5-65); TOTAL BILIRUBIN 0.7 MG/DL (0-1.2)
[2016-08-24 22:55] LABS: SODIUM, SERUM 147 MMOL/L (135-148)
[2016-08-24 22:56] LABS: A/G RATIO 1.4 (0.7-1.9); ALKALINE PHOSPHATASE 32 U/L (45-117); BUN (BLOOD UREA NITROGEN) 16 MG/DL (6-23); CO2 (CARBON DIOXIDE) 20 MMOL/L (24-34); CREATININE 0.79 MG/DL (0.70-1.30); GFR AFRICAN AMERICAN 105 ML/MIN (>=60); GFR NON AFRICAN AMERICAN 90 ML/MIN (>=60); GLOBULIN 1.8 G/DL (2.5-4.1); POTASSIUM, SERUM 4.2 MMOL/L (3.5-5.3); SGOT(AST) 44 U/L (5-40); TOTAL PROTEIN 4.4 G/DL (6.0-8.5)
[2016-08-25 00:35] LABS: BE (BASE EXCESS) 2.7 MEQ/L (0 +/- 2.5); CARBOXYHEMOGLOBIN 0.2 % (0-3); HCO3 (ACTUAL BICARBONATE) 28.7 MEQ/L (23-27); HEMOBLOGIN CONTENT 9.8 G/DL (14-18); INSTRUMENT SERIAL # 35151; METHEMOGLOBIN 0.9 % (0-3); MODE CMV; O2 CONTENT 13.1 VOL% (18-24); OPERATOR ID 13861; PCO2 (CO2 TENSION) 51 MMHG (35-45); PO2 (O2 TENSION) 86 MMHG (79-93); SAMPLE Arterial; TIDAL VOLUME 500 ML; pH 7.37 (7.37-7.43)
[2016-08-25 03:55] LABS: HEMATOCRIT 26.5 % (40.0-51.0); HEMOGLOBIN 8.9 g/dL (13.6-17.8); MEAN CORPUS HGB CONC 33.6 g/dL (32.0-36.0); MEAN CORPUSCULAR HEMOGLOB 30.8 pg (26.0-34.0); MEAN CORPUSCULAR VOLUME 91.7 fL (80-100); MEAN PLATELET VOLUME 10.5 fL (9.2-13.0); NUCLEATED RED BLOOD CELLS 0.2 /100WBC (0-0); PLATELET COUNT 125 10/3/uL (150-400); RBC DISTRIBUTION WIDTH 16.6 % (12.0-16.0); RED CELL COUNT 2.89 10/6/uL (4.7-6.1); WHITE BLOOD CELLS 21.8 10/3/uL (4.5-10.5)
[2016-08-25 03:57] LABS: A/G RATIO 0.8 (0.7-1.9); ALBUMIN 2.5 G/DL (3.5-5.0); ALKALINE PHOSPHATASE 195 U/L (45-117); BUN (BLOOD UREA NITROGEN) 21 MG/DL (6-23); CALCIUM, SERUM 8.3 MG/DL (8.5-10.4); CHLORIDE, SERUM 101 MMOL/L (96-112); CO2 (CARBON DIOXIDE) 29 MMOL/L (24-34); CREATININE 1.36 MG/DL (0.70-1.30); GFR AFRICAN AMERICAN 60 ML/MIN (>=60); GFR NON AFRICAN AMERICAN 52 ML/MIN (>=60); GLOBULIN 3.1 G/DL (2.5-4.1); GLUCOSE, SERUM 131 MG/DL (60-99); PHOSPHORUS, SERUM 5.1 MG/DL (2.5-4.5); POTASSIUM, SERUM 4.8 MMOL/L (3.5-5.3); SGOT(AST) 73 U/L (5-40); SGPT(ALT) 39 U/L (5-65); SODIUM, SERUM 136 MMOL/L (135-148); TOTAL BILIRUBIN 0.5 MG/DL (0-1.2); TOTAL PROTEIN 5.6 G/DL (6.0-8.5)
[2016-08-25 03:59] LABS: MANUAL DIFF YES %
[2016-08-25 04:02] LABS: BAND NEUTROPHILS 5 %; EOSINOPHILS 1 %; EOSINOPHILS ABSOLUTE (CALC) 0.22 10/3/uL (0.0-0.53); IMMATURE GRANS ABSOLUTE (CALC) 0.87 10/3/uL (0.0-0.11); METAMYELOCYTES 2 %; MONOCYTES 6 %; MONOCYTES ABSOLUTE (CALC) 1.31 10/3/uL (0.21-1.20); MYELOCYTES 2 %; PLATELET ESTIMATE SLT DEC (ADEQUATE); RBC MORPHOLOGY NORM (NORMAL); SEGMENTED NEUTROPHIL (0) 84 %; TOTAL NUCLEATED CELLS 100
[2016-08-26 04:24] LABS: HEMATOCRIT 25.5 % (40.0-51.0); HEMOGLOBIN 8.6 g/dL (13.6-17.8); MEAN CORPUS HGB CONC 33.7 g/dL (32.0-36.0); MEAN CORPUSCULAR HEMOGLOB 31.3 pg (26.0-34.0); MEAN CORPUSCULAR VOLUME 92.7 fL (80-100); MEAN PLATELET VOLUME 9.7 fL (9.2-13.0); NUCLEATED RED BLOOD CELLS 0.3 /100WBC (0-0); RBC DISTRIBUTION WIDTH 17.5 % (12.0-16.0); RED CELL COUNT 2.75 10/6/uL (4.7-6.1); WHITE BLOOD CELLS 23.8 10/3/uL (4.5-10.5)
[2016-08-26 04:25] LABS: MANUAL DIFF YES %; PLATELET COUNT 190 10/3/uL (150-400)
[2016-08-26 04:32] LABS: A/G RATIO 0.7 (0.7-1.9); ALBUMIN 2.4 G/DL (3.5-5.0); ALKALINE PHOSPHATASE 185 U/L (45-117); BUN (BLOOD UREA NITROGEN) 21 MG/DL (6-23); CALCIUM, SERUM 8.6 MG/DL (8.5-10.4); CHLORIDE, SERUM 102 MMOL/L (96-112); CO2 (CARBON DIOXIDE) 28 MMOL/L (24-34); CREATININE 1.57 MG/DL (0.70-1.30); GFR AFRICAN AMERICAN 51 ML/MIN (>=60); GFR NON AFRICAN AMERICAN 44 ML/MIN (>=60); GLOBULIN 3.3 G/DL (2.5-4.1); GLUCOSE, SERUM 116 MG/DL (60-99); PHOSPHORUS, SERUM 4.8 MG/DL (2.5-4.5); POTASSIUM, SERUM 4.4 MMOL/L (3.5-5.3); SGOT(AST) 66 U/L (5-40); SGPT(ALT) 30 U/L (5-65); SODIUM, SERUM 134 MMOL/L (135-148); TOTAL BILIRUBIN 0.6 MG/DL (0-1.2); TOTAL PROTEIN 5.7 G/DL (6.0-8.5)
[2016-08-26 05:14] LABS: ANISOCYTOSIS 1+ (5-10/OIF) (0-5/OIF); BAND NEUTROPHILS 1 %; IMMATURE GRANS ABSOLUTE (CALC) 0.95 10/3/uL (0.0-0.11); LYMPHOCYTES 3 %; LYMPHOCYTES ABSOLUTE (CALC) 0.71 10/3/uL (0.67-4.30); METAMYELOCYTES 3 %; MONOCYTES 3 %; MONOCYTES ABSOLUTE (CALC) 0.71 10/3/uL (0.21-1.20); MYELOCYTES 1 %; NEUTROPHILS ABSOLUTE (CALC) 21.42 10/3/uL (2.02-8.40); PLATELET ESTIMATE ADQ (ADEQUATE); SEGMENTED NEUTROPHIL (0) 89 %; TOTAL NUCLEATED CELLS 100
[2016-08-27 03:50] LABS: BE (BASE EXCESS) 1.6 MEQ/L (0 +/- 2.5); CARBOXYHEMOGLOBIN 0.2 % (0-3); HCO3 (ACTUAL BICARBONATE) 27.5 MEQ/L (23-27); HEMOBLOGIN CONTENT 9.5 G/DL (14-18); INSTRUMENT SERIAL # 35151; METHEMOGLOBIN 0.8 % (0-3); O2 CONTENT 12.4 VOL% (18-24); PCO2 (CO2 TENSION) 50 MMHG (35-45); PO2 (O2 TENSION) 78 MMHG (79-93); pH 7.36 (7.37-7.43)
[2016-08-27 03:51] LABS: MODE CMV; OPERATOR ID 16503; SAMPLE Arterial; TIDAL VOLUME 500 ML
[2016-08-27 04:34] LABS: HEMATOCRIT 26.8 % (40.0-51.0); HEMOGLOBIN 8.7 g/dL (13.6-17.8); MEAN CORPUS HGB CONC 32.5 g/dL (32.0-36.0); MEAN CORPUSCULAR HEMOGLOB 30.4 pg (26.0-34.0); MEAN CORPUSCULAR VOLUME 93.7 fL (80-100); MEAN PLATELET VOLUME 9.6 fL (9.2-13.0); PLATELET COUNT 227 10/3/uL (150-400); RBC DISTRIBUTION WIDTH 17.4 % (12.0-16.0); RED CELL COUNT 2.86 10/6/uL (4.7-6.1); WHITE BLOOD CELLS 18.4 10/3/uL (4.5-10.5)
[2016-08-27 04:37] LABS: MANUAL DIFF YES %
[2016-08-27 04:45] LABS: BUN (BLOOD UREA NITROGEN) 19 MG/DL (6-23); CALCIUM, SERUM 8.4 MG/DL (8.5-10.4); CHLORIDE, SERUM 104 MMOL/L (96-112); CO2 (CARBON DIOXIDE) 30 MMOL/L (24-34); CREATININE 1.18 MG/DL (0.70-1.30); GFR AFRICAN AMERICAN 72 ML/MIN (>=60); GFR NON AFRICAN AMERICAN 62 ML/MIN (>=60); GLUCOSE, SERUM 99 MG/DL (60-99); PHOSPHORUS, SERUM 4.1 MG/DL (2.5-4.5); POTASSIUM, SERUM 4.4 MMOL/L (3.5-5.3); SODIUM, SERUM 138 MMOL/L (135-148)
[2016-08-27 05:34] LABS: BAND NEUTROPHILS 9 %; EOSINOPHILS 1 %; EOSINOPHILS ABSOLUTE (CALC) 0.18 10/3/uL (0.0-0.53); LYMPHOCYTES 4 %; LYMPHOCYTES ABSOLUTE (CALC) 0.74 10/3/uL (0.67-4.30); MONOCYTES 8 %; MONOCYTES ABSOLUTE (CALC) 1.47 10/3/uL (0.21-1.20); NEUTROPHILS ABSOLUTE (CALC) 16.01 10/3/uL (2.02-8.40); NUCLEATED RED BLOOD CELLS 1 /100WBC (0); PLATELET ESTIMATE ADQ (ADEQUATE); RBC MORPHOLOGY NORM (NORMAL); SEGMENTED NEUTROPHIL (0) 78 %; TOTAL NUCLEATED CELLS 100
[2016-08-28 02:49] LABS: ALBUMIN 2.4 G/DL (3.5-5.0); BUN (BLOOD UREA NITROGEN) 20 MG/DL (6-23); CALCIUM, SERUM 8.6 MG/DL (8.5-10.4); CHLORIDE, SERUM 102 MMOL/L (96-112); CO2 (CARBON DIOXIDE) 29 MMOL/L (24-34); CREATININE 1.24 MG/DL (0.70-1.30); GFR AFRICAN AMERICAN 67 ML/MIN (>=60); GFR NON AFRICAN AMERICAN 58 ML/MIN (>=60); GLUCOSE, SERUM 118 MG/DL (60-99); PHOSPHORUS, SERUM 4.5 MG/DL (2.5-4.5); POTASSIUM, SERUM 4.3 MMOL/L (3.5-5.3); SODIUM, SERUM 140 MMOL/L (135-148)
[2016-08-28 02:50] LABS: HEMATOCRIT 27.5 % (40.0-51.0); HEMOGLOBIN 9.1 g/dL (13.6-17.8); MEAN CORPUS HGB CONC 33.1 g/dL (32.0-36.0); MEAN CORPUSCULAR HEMOGLOB 31.1 pg (26.0-34.0); MEAN CORPUSCULAR VOLUME 93.9 fL (80-100); MEAN PLATELET VOLUME 9.2 fL (9.2-13.0); PLATELET COUNT 260 10/3/uL (150-400); RBC DISTRIBUTION WIDTH 17.4 % (12.0-16.0); RED CELL COUNT 2.93 10/6/uL (4.7-6.1); WHITE BLOOD CELLS 19.7 10/3/uL (4.5-10.5)
[2016-08-28 02:59] LABS: MANUAL DIFF YES %
[2016-08-28 03:16] LABS: BAND NEUTROPHILS 5 %; LYMPHOCYTES 2 %; LYMPHOCYTES ABSOLUTE (CALC) 0.39 10/3/uL (0.67-4.30); MONOCYTES 6 %; MONOCYTES ABSOLUTE (CALC) 1.18 10/3/uL (0.21-1.20); MYELOCYTES 1 %; NEUTROPHILS ABSOLUTE (CALC) 17.93 10/3/uL (2.02-8.40); PLATELET ESTIMATE ADQ (ADEQUATE); RBC MORPHOLOGY NORM (NORMAL); SEGMENTED NEUTROPHIL (0) 86 %; TOTAL NUCLEATED CELLS 100
[2016-08-29 03:54] LABS: HEMATOCRIT 27.5 % (40.0-51.0); MEAN CORPUS HGB CONC 32.7 g/dL (32.0-36.0); MEAN CORPUSCULAR HEMOGLOB 30.6 pg (26.0-34.0); MEAN CORPUSCULAR VOLUME 93.5 fL (80-100); PLATELET COUNT 267 10/3/uL (150-400); RBC DISTRIBUTION WIDTH 17.4 % (12.0-16.0); RED CELL COUNT 2.94 10/6/uL (4.7-6.1); WHITE BLOOD CELLS 17.4 10/3/uL (4.5-10.5)
[2016-08-29 03:55] LABS: MANUAL DIFF YES %
[2016-08-29 04:12] LABS: A/G RATIO 0.7 (0.7-1.9); ALBUMIN 2.3 G/DL (3.5-5.0); BUN (BLOOD UREA NITROGEN) 21 MG/DL (6-23); CALCIUM, SERUM 8.5 MG/DL (8.5-10.4); CHLORIDE, SERUM 106 MMOL/L (96-112); CO2 (CARBON DIOXIDE) 30 MMOL/L (24-34); CREATININE 1.08 MG/DL (0.70-1.30); GFR AFRICAN AMERICAN 80 ML/MIN (>=60); GFR NON AFRICAN AMERICAN 69 ML/MIN (>=60); GLOBULIN 3.4 G/DL (2.5-4.1); POTASSIUM, SERUM 4.1 MMOL/L (3.5-5.3); SGOT(AST) 49 U/L (5-40); SGPT(ALT) 27 U/L (5-65); SODIUM, SERUM 143 MMOL/L (135-148); TOTAL BILIRUBIN 0.6 MG/DL (0-1.2); TOTAL PROTEIN 5.7 G/DL (6.0-8.5)
[2016-08-29 04:13] LABS: ALKALINE PHOSPHATASE 199 U/L (45-117); GLUCOSE, SERUM 174 MG/DL (60-99)
[2016-08-29 06:05] LABS: ANISOCYTOSIS 1+ (5-10/OIF) (0-5/OIF); BAND NEUTROPHILS 2 %; IMMATURE GRANS ABSOLUTE (CALC) 0.35 10/3/uL (0.0-0.11); LYMPHOCYTES 3 %; LYMPHOCYTES ABSOLUTE (CALC) 0.52 10/3/uL (0.67-4.30); METAMYELOCYTES 2 %; MONOCYTES 7 %; MONOCYTES ABSOLUTE (CALC) 1.22 10/3/uL (0.21-1.20); NEUTROPHILS ABSOLUTE (CALC) 15.31 10/3/uL (2.02-8.40); PLATELET ESTIMATE ADQ (ADEQUATE); SEGMENTED NEUTROPHIL (0) 86 %; TOTAL NUCLEATED CELLS 100
[2016-08-29 18:21] LABS: ALBUMIN 2.5 G/DL (3.5-5.0); BUN (BLOOD UREA NITROGEN) 23 MG/DL (6-23); CALCIUM, SERUM 8.7 MG/DL (8.5-10.4); CHLORIDE, SERUM 106 MMOL/L (96-112); CO2 (CARBON DIOXIDE) 31 MMOL/L (24-34); CREATININE 1.11 MG/DL (0.70-1.30); GFR AFRICAN AMERICAN 77 ML/MIN (>=60); GFR NON AFRICAN AMERICAN 66 ML/MIN (>=60); GLUCOSE, SERUM 175 MG/DL (60-99); SODIUM, SERUM 144 MMOL/L (135-148)
[2016-08-29 18:23] LABS: PHOSPHORUS, SERUM 3.1 MG/DL (2.5-4.5)
[2016-08-30 04:44] LABS: HEMATOCRIT 30.2 % (40.0-51.0); HEMOGLOBIN 9.8 g/dL (13.6-17.8); MEAN CORPUS HGB CONC 32.5 g/dL (32.0-36.0); MEAN CORPUSCULAR HEMOGLOB 30.7 pg (26.0-34.0); MEAN CORPUSCULAR VOLUME 94.7 fL (80-100); MEAN PLATELET VOLUME 9.1 fL (9.2-13.0); PLATELET COUNT 328 10/3/uL (150-400); RBC DISTRIBUTION WIDTH 17.9 % (12.0-16.0); RED CELL COUNT 3.19 10/6/uL (4.7-6.1); WHITE BLOOD CELLS 15.4 10/3/uL (4.5-10.5)
[2016-08-30 04:45] LABS: MANUAL DIFF YES %
[2016-08-30 05:05] LABS: ALBUMIN 2.4 G/DL (3.5-5.0); BUN (BLOOD UREA NITROGEN) 24 MG/DL (6-23); CALCIUM, SERUM 8.5 MG/DL (8.5-10.4); CHLORIDE, SERUM 105 MMOL/L (96-112); CO2 (CARBON DIOXIDE) 34 MMOL/L (24-34); CREATININE 1.14 MG/DL (0.70-1.30); GFR AFRICAN AMERICAN 75 ML/MIN (>=60); GFR NON AFRICAN AMERICAN 64 ML/MIN (>=60); GLUCOSE, SERUM 201 MG/DL (60-99); POTASSIUM, SERUM 3.7 MMOL/L (3.5-5.3); SODIUM, SERUM 142 MMOL/L (135-148)
[2016-08-30 05:51] LABS: PROCALCITONIN 0.19 ng/mL (<0.5)
[2016-08-30 07:10] LABS: ANISOCYTOSIS 1+ (5-10/OIF) (0-5/OIF); BAND NEUTROPHILS 10 %; BASOPHILS 3 %; BASOPHILS ABSOLUTE (CALC) 0.46 10/3/uL (0.0-0.16); IMMATURE GRANS ABSOLUTE (CALC) 0.31 10/3/uL (0.0-0.11); LYMPHOCYTES 7 %; LYMPHOCYTES ABSOLUTE (CALC) 1.08 10/3/uL (0.67-4.30); METAMYELOCYTES 2 %; MONOCYTES 4 %; MONOCYTES ABSOLUTE (CALC) 0.62 10/3/uL (0.21-1.20); NEUTROPHILS ABSOLUTE (CALC) 12.94 10/3/uL (2.02-8.40); PLATELET ESTIMATE ADQ (ADEQUATE); POLYCHROMASIA 1+ (2-5/OIF) (0-1/OIF); SEGMENTED NEUTROPHIL (0) 74 %; TOTAL NUCLEATED CELLS 100; TOXIC GRANULATION 1+
[2016-08-31 04:20] LABS: CARBOXYHEMOGLOBIN 0.8 % (0-3); DEVICE HFNC; HCO3 (ACTUAL BICARBONATE) 27.7 MEQ/L (23-27); HEMOBLOGIN CONTENT 10.8 G/DL (14-18); INSTRUMENT SERIAL # 35151; METHEMOGLOBIN 0.4 % (0-3); O2 CONTENT 14.6 VOL% (18-24); OPERATOR ID 23712; PCO2 (CO2 TENSION) 43 MMHG (35-45); PO2 (O2 TENSION) 93 MMHG (79-93); SAMPLE Arterial; pH 7.43 (7.37-7.43)
[2016-08-31 04:21] LABS: ALLENS TEST Pos
== END 2016-09-01 17:31 | disposition expired | DRG 308 ==
LOC: ER 14:18 → CCU 17:25 → 4EA 09-01 09:51
PROVIDERS: Emergency Medicine; Internal Medicine Critical Care Medicine
PROC: 5A1955Z Respiratory Ventilation, Greater than 96 Consecutive Hours (ICD-10-PCS; principal; 2016-08-23)
PROC: 0BH17EZ Insertion of Endotracheal Airway into Trachea, Via Natural or Artificial Opening (ICD-10-PCS; 2016-08-23)
PROC: 02HV33Z Insertion of Infusion Device into Superior Vena Cava, Percutaneous Approach (ICD-10-PCS; 2016-08-23)
PROC: 4A02X4A Measurement of Cardiac Electrical Activity, Guidance, External Approach (ICD-10-PCS; 2016-08-23)
DX: I49.01 Ventricular fibrillation (principal); J96.21 Acute and chronic respiratory failure with hypoxia; R57.9 Shock, unspecified; J84.10 Pulmonary fibrosis, unspecified; G93.40 Encephalopathy, unspecified; C78.7 Secondary malignant neoplasm of liver and intrahepatic bile duct; G93.1 Anoxic brain damage, not elsewhere classified; L03.115 Cellulitis of right lower limb; L03.116 Cellulitis of left lower limb; C34.90 Malignant neoplasm of unspecified part of unspecified bronchus or lung; J44.9 Chronic obstructive pulmonary disease, unspecified; N18.9 Chronic kidney disease, unspecified; I48.2 Chronic atrial fibrillation; E11.9 Type 2 diabetes mellitus without complications; G47.33 Obstructive sleep apnea (adult) (pediatric); I73.9 Peripheral vascular disease, unspecified; L40.9 Psoriasis, unspecified; F41.9 Anxiety disorder, unspecified; I46.9 Cardiac arrest, cause unspecified; I47.2 Ventricular tachycardia; Z99.81 Dependence on supplemental oxygen; Z79.01 Long term (current) use of anticoagulants; I25.2 Old myocardial infarction; Z95.5 Presence of coronary angioplasty implant and graft; Z86.73 Personal history of transient ischemic attack (TIA), and cerebral infarction without residual deficits; Z85.820 Personal history of malignant melanoma of skin; Z66 Do not resuscitate; N18.3 Chronic kidney disease, stage 3 (moderate)
CPT/HCPCS: 31720; 36569; 36600; 70450; 70553; 71010; 74000; 80048; 80053; 80069; 82533; 82607; 82746; 82805; 82962; 83036; 83605; 83735; 83880; 84100; 84145; 84439; 84443; 84484; 85025; 85610; 87040; 87070; 87077; 87186; 87205; 87641; 93005; 94002; 94003; 94640; 94660; 94770; 95816; 96365; 96367; 99285; A9270-GY; A9577; C1751; C8929; C9113; J0282; J0690; J1170; J2405; J2543; J3010; J3411; P9045; Q9957